=== PATIENT | male | born 2000 | race Hispanic/Latino ===

== ENCOUNTER 2023-09-16 15:23 | Emergency (ER) | payer OTHER ==
[~2023-09-16] VITALS: Ht 170.2 cm; Wt 90.7 kg
[2023-09-16] MEDS ORDERED: IBUPROFEN 600 MG TABLET PO ONE (17:00)
[2023-09-16 17:55] VITALS: BP 128/72; PULSE 76; RESP 18; O2SAT 99
== END 2023-09-16 17:56 | disposition home or self-care (01) ==
LOC: EDH 15:23 → EDSEX 15:23 → EDH 17:56
DX: S00.03XA Contusion of scalp, initial encounter (principal); X58.XXXA Exposure to other specified factors, initial encounter; Y93.89 Activity, other specified; Y92.89 Other specified places as the place of occurrence of the external cause; Y99.8 Other external cause status
CPT/HCPCS: 99282